=== PATIENT | female | born 1985 | race Caucasian/White ===

== ENCOUNTER 2019-10-20 04:37 | Inpatient (IN) | payer OTHER ==
[2019-10-20 05:05] VITALS: BMI 30.7
[2019-10-20 05:55] LABS: BASO % 0.4 % (0-2.0); EOS % 0.8 % (0-4.5); HEMATOCRIT 39.7 % (32.4-45.2); HEMOGLOBIN 13.2 GM/dL (10.7-15.3); LYMPH % 18.7 % (8-40); MCH 27.9 pg (25.7-33.7); MCHC 33.3 g/dl (32.0-36.0); MEAN CELL VOLUME 83.8 fl (80-96); MEAN PLT VOLUME 7.9 fl (7.5-11.1); MONO % 8.7 % (3.8-10.2); NEUT % 71.4 % (42.8-82.8); PLATELET COUNT 262 K/MM3 (134-434); RBC 4.73 M/mm3 (3.60-5.2); RDW 15.6 % (11.6-15.6); WHITE BLOOD COUNT 11.1 K/mm3 (4.0-10.0)
--- NOTE | 2019-10-20 05:58 | PDOC ---
History of Present Illness - General Chief Complaint: Pain, Acute Stated Complaint: RIGHT SIDE PAIN Time Seen by Provider: 10/20/19 04:55 - History of Present Illness Initial Comments: Ms. Collins is a 34 y/o female with no significant PMH presenting today with right sided flank and back pain that started earlier this afternoon around 4pm. Reports that the pain started suddenly. Describes the pain in the right flank area and radiating to the right posterior shoulder. Describes the pain as sharp and stabbing in nature. Reports that the pain has been worsening. Reports that she tried motrin but did not improve the pain. Denies fever/chills. Denies dysuria. Denies abdominal pain. Denies chest pain/ shortness of breath. Reports that she had a kidney infection back in high school. Reports that she recently gave 2 months ago, unsure if she has hematuria. SurgHx: none, gallbladder still intact Past History - Past Medical History Allergies/Adverse Reactions: Allergies Allergy/AdvReac Type Severity Reaction Status Date / Time No Known Allergies Allergy Verified 10/20/19 06:32 COPD: No - Immunization History Immunization Up to Date: Yes - Psycho Social/Smoking Cessation Hx Smoking History: Never smoked Information on smoking cessation initiated: No Hx Alcohol Use: Yes (social) Review of Systems - Review of Systems Comments:: GENERAL/CONSTITUTIONAL: No fever or chills. No weakness._ HEAD, EYES, EARS, NOSE AND THROAT: No change in vision. No change in hearing. No sore throat._ CARDIOVASCULAR: No chest pain or shortness of breath_ RESPIRATORY: Denies cough, hemoptysis_ GASTROINTESTINAL: No nausea, vomiting, diarrhea or constipation._ GENITOURINARY: No dysuria, frequency, or change in urination._ MUSCULOSKELETAL: Reports right sided flank pain and right posterior shoulder pain. SKIN: No rash_ NEUROLOGIC: No headache, vertigo, loss of consciousness, or change in strength/ sensation._ ENDOCRINE: No increased thirst. No abnormal weight change_ HEMATOLOGIC/LYMPHATIC: No anemia, easy bleeding. ALLERGIC/IMMUNOLOGIC: No hives or skin allergy._ *Physical Exam - Vital Signs Last Vital Signs Temp Pulse Resp BP Pulse Ox 98.8 F 64 20 144/74 99 10/20/19 04:44 10/20/19 04:44 10/20/19 04:44 10/20/19 04:44 10/20/19 04:44 - Physical Exam GENERAL: Awake, alert, and oriented to person/place/time, in no acute distress_ HEAD: No signs of trauma, normocephalic, atraumatic _ EYES: PERRLA, EOMI, sclera anicteric, conjunctiva clear_ ENT: Hearing grossly normal, nares patent, oropharynx clear without exudates. No uvular deviation. Moist mucosa_ NECK: Normal ROM, supple, no lymphadenopathy, JVD, or masses_ LUNGS: No distress, speaks in full sentences, clear to auscultation bilaterally _ HEART: Regular rate and rhythm, normal S1 and S2, no murmurs appreciated, peripheral pulses normal and equal bilaterally._ ABDOMEN: Soft, nontender, normoactive bowel sounds. No guarding, no rebound. No masses_ MSK: No tenderness to palpation over right flank or right posterior shoulder. BACK: No CVA tenderness bilaterally. EXTREMITIES: Normal inspection, Normal range of motion, no edema. No clubbing or cyanosis_ NEUROLOGICAL: Cranial nerves II through XII grossly intact. Normal speech, normal gait, no focal sensorimotor deficits _ SKIN: Warm, Dry, normal turgor, no rashes or lesions noted_ ED Treatment Course - LABORATORY CBC & Chemistry Diagram: 10/20/19 05:30 10/20/19 05:30 - RADIOLOGY Radiology Studies Ordered: Category Date Time Status SPIRAL- RENAL-STONE CT [CT] Stat CT Scan 10/20/19 05:12 Ordered Medical Decision Making - Medical Decision Making 34F with past hx of kidney infection presenting with right sided flank pain radiating to the right posterior shoulder. -cbc, cmp -ua, ucx, upreg -ct spiral -toradol, IV fluids 10/20/19 05:45 Labs reviewed. Laboratory Tests 10/20/19 10/20/19 10/20/19 05:30 05:30 05:30 WBC 11.1 H RBC 4.73 Hgb 13.2 Hct 39.7 MCV 83.8 MCH 27.9 MCHC 33.3 RDW 15.6 Plt Count 262 MPV 7.9 Absolute Neuts (auto) 7.9 Neutrophils % 71.4 Lymphocytes % 18.7 Monocytes % 8.7 Eosinophils % 0.8 Basophils % 0.4 Nucleated RBC % 0 D-Dimer Sodium 142 Potassium 3.8 Chloride 108 H Carbon Dioxide 25 Anion Gap 9 BUN 17.2 Creatinine 1.0 Est GFR (CKD-EPI)AfAm 85.72 Est GFR (CKD-EPI)NonAf 73.96 Random Glucose 79 Calcium 8.6 Total Bilirubin 0.4 AST 14 L ALT 24 Alkaline Phosphatase 122 H Total Protein 6.6 Albumin 3.3 L Urine Color Urine Appearance Urine pH Ur Specific [place] Urine Protein Urine Glucose (UA) Urine Ketones Urine Blood Urine Nitrite Urine Bilirubin Urine Urobilinogen Ur Leukocyte Esterase Urine WBC (Auto) Urine RBC (Auto) Urine Casts (Auto) U Epithel Cells (Auto) Urine Bacteria (Auto) Urine HCG, Qual Negative Urine Test Results Urine Color Yellow 10/20/19 05:50 Urine Appearance Clear 10/20/19 05:50 Urine pH 6.0 (5.0-8.0) 10/20/19 05:50 Ur Specific [place] 1.025 (1.010-1.035) 10/20/19 05:50 Urine Protein Negative (NEGATIVE) 10/20/19 05:50 Urine Glucose (UA) Negative (NEGATIVE) 10/20/19 05:50 Urine Ketones Negative (NEGATIVE) 10/20/19 05:50 Urine Blood 2+ (NEGATIVE) H 10/20/19 05:50 Urine Nitrite Negative (NEGATIVE) 10/20/19 05:50 Urine Bilirubin Negative (NEGATIVE) 10/20/19 05:50 Ur Leukocyte Esterase Negative (NEGATIVE) 10/20/19 05:50 10/20/19 07:09 Pt signed out to Dr. Kolb pending CT spiral. Discharge - Discharge Information Problems reviewed: Yes Clinical Impression/Diagnosis: Pulmonary embolus Condition: Guarded - Admission Yes - Follow up/Referral - Patient Discharge Instructions - Post Discharge Activity
[2019-10-20] MEDS ORDERED: KETOROLAC TROMETHAMINE 30 MG/1 ML VIAL IVPUSH ONE ×2 (06:23→13:56)
[2019-10-20] MEDS ORDERED: SODIUM CHLORIDE 1,000 ML IV STA (06:23)
--- NOTE | 2019-10-20 06:23 | PDOC ---
Attending Attestation - Resident Resident Name: Jef Reyna - ED Attending Attestation I have performed the following: I have examined & evaluated the patient, The case was reviewed & discussed with the resident, I agree w/resident's findings & plan, Exceptions are as noted - HPI HPI: 10/20/19 06:19 Ms. Collins is a 34 y/o female with no significant PMH presenting today with right sided flank and back pain that started earlier this afternoon around 4pm. Pain began suddenly, pain is described as sharp/stabbing. Pain is rated 8/10. Patient attempted to go to sleep, but pain has been worsening. She tried taking Motrin with no relief. No fevers or chills Denies fever/chills. No dysuria, patient is currently on her first. Status post delivery so cannot inform us about hematuria Denies chest pain/shortness of breath. Reports that she had a kidney infection back in high school SurgHx: none, gallbladder still intact - Physicial Exam PE: 10/20/19 06:21 GENERAL: The patient is in no acute distress, patient appears uncomfortable. ENT: Ears normal, nares patent, oropharynx clear without exudates. Moist mucous membranes. NECK: Normal range of motion, supple LUNGS: Breath sounds equal, clear to auscultation bilaterally. No wheezes, and no crackles. HEART:Regular rate and rhythm, normal S1 and S2 without murmur, rub or gallop. ABDOMEN: Soft, nontender, normoactive bowel sounds. No actual CVA tenderness EXTREMITIES: Normal range of motion, no edema. NEUROLOGICAL: Cranial nerves II through XII grossly intact. Normal speech. No focal neurological deficits. SKIN: Warm, Dry, normal turgor, no rashes or lesions noted. - Medical Decision Making 10/20/19 06:22 34-year-old female, 2 months presenting to the emergency department with sudden onset of right flank pain which is been present since 4 PM. Pain is been worsening which prompted her visit to the ER. No associated fevers or chills. No dysuria. Differential diagnosis in this patient includes and is not limited to: Renal colic, pyelonephritis, biliary colic, musculoskeletal pain, Will do: Lab UA/urine culture Spiral CT IV hydration Analgesia Reassess Signed out to AM team
[2019-10-20 06:25] LABS: ALBUMIN 3.3 g/dl (3.4-5.0); ALK PHOS 122 U/L (45-117); ANION GAP 9 MMOL/L (8-16); BILIRUBIN,TOTAL 0.4 mg/dL (0.2-1); BLOOD UREA NITROGEN 17.2 mg/dL (7-18); CALCIUM 8.6 mg/dL (8.5-10.1); CHLORIDE 108 mmol/L (98-107); CO2 25 mmol/L (21-32); GLUCOSE,RANDOM 79 mg/dL (74-106); POTASSIUM 3.8 mmol/L (3.5-5.1); SGOT/AST 14 U/L (15-37); SGPT/ALT 24 U/L (13-61); SODIUM 142 mmol/L (136-145); TOT PROT 6.6 g/dl (6.4-8.2)
[2019-10-20 07:00] LABS: EPI CELLS 0.7 /HPF (0-5/HPF); HYALINE CASTS 0 /lpf (0-8); URINE APPEARANCE CLEAR; URINE BACTERIA 9.1 /hpf (NEGATIVE); URINE BILIRUBIN NEGATIVE (NEGATIVE); URINE COLOR YELLOW; URINE GLUCOSE (UA) NEGATIVE (NEGATIVE); URINE KETONE NEGATIVE (NEGATIVE); URINE LEUK ESTERASE NEGATIVE (NEGATIVE); URINE NITRITE NEGATIVE (NEGATIVE); URINE PROTEIN NEGATIVE (NEGATIVE); URINE RBC 21 /hpf (0-4); URINE UROBILINOGEN 0.2 mg/dL (0.2-1.0); URINE WBC 1 /hpf (0-5)
--- NOTE | 2019-10-20 07:23 | PDOC ---
*Physical Exam - Vital Signs Last Vital Signs Temp Pulse Resp BP Pulse Ox 98.8 F 64 20 144/74 99 10/20/19 04:44 10/20/19 04:44 10/20/19 04:44 10/20/19 04:44 10/20/19 04:44 ED Treatment Course - LABORATORY CBC & Chemistry Diagram: 10/20/19 05:30 10/20/19 05:30 - ADDITIONAL ORDERS Additional order review: Laboratory Results 10/20/19 10/20/19 10/20/19 05:50 05:30 05:30 Sodium 142 Potassium 3.8 Chloride 108 H Carbon Dioxide 25 Anion Gap 9 BUN 17.2 Creatinine 1.0 Est GFR (CKD-EPI)AfAm 85.72 Est GFR (CKD-EPI)NonAf 73.96 Random Glucose 79 Calcium 8.6 Total Bilirubin 0.4 AST 14 L ALT 24 Alkaline Phosphatase 122 H Total Protein 6.6 Albumin 3.3 L Urine Color Yellow Urine Appearance Clear Urine pH 6.0 Ur Specific [place] 1.025 Urine Protein Negative Urine Glucose (UA) Negative Urine Ketones Negative Urine Blood 2+ H Urine Nitrite Negative Urine Bilirubin Negative Urine Urobilinogen 0.2 Ur Leukocyte Esterase Negative Urine WBC (Auto) 1 Urine RBC (Auto) 21 Urine Casts (Auto) 0 U Epithel Cells (Auto) 0.7 Urine Bacteria (Auto) 9.1 Urine HCG, Qual Negative 10/20/19 05:30 RBC 4.73 MCV 83.8 MCHC 33.3 RDW 15.6 MPV 7.9 Neutrophils % 71.4 Lymphocytes % 18.7 Monocytes % 8.7 Eosinophils % 0.8 Basophils % 0.4 - Medications Given in the ED: ED Medications Discontinued Medications Generic Name Dose Route Start Last Admin Trade Name Freq PRN Reason Stop Dose Admin Sodium Chloride 1,000 mls @ 1,000 mls/hr 10/20/19 06:23 10/20/19 06:38 Normal Saline - IV 10/20/19 07:22 1,000 mls/hr ASDIR STA Administration Ketorolac Tromethamine 30 mg 10/20/19 06:23 10/20/19 06:38 Toradol Injection - IVPUSH 10/20/19 06:24 30 mg ONCE ONE Administration Medical Decision Making - Medical Decision Making 10/20/19 07:[address] Reyna. Concern for possible kidney stone, will f/u spiral CT. 10/20/19 09:46 CT scan without kidney stones, however, cannot rule out possible infiltrate at the R lung base. Reassessed the patient, states that she has shortness of breath and pain with deep breaths, particularly on the R side. Will get chest PA + L. 10/20/19 11:30 CXR without acute pathology. Dimer over 7000. Will get CTA. 10/20/19 13:30 CTA with R lower lobe posterior emboli. Will give Lovenox, admit. 10/20/19 13:51 Patient admitted, will put in pulmonology consult. Discharge - Discharge Information Problems reviewed: Yes Clinical Impression/Diagnosis: Pulmonary embolus - Admission Yes - Follow up/Referral - Patient Discharge Instructions - Post Discharge Activity
[2019-10-20] MEDS ORDERED: ACETAMINOPHEN 1000 MG/100 ML VIAL (NON FORMULARY) IVPB ONE (11:09)
[2019-10-20] MEDS ORDERED: ACETAMINOPHEN INJECTION 100 ML IVPB ONE (11:21)
[2019-10-20] MEDS ORDERED: ENOXAPARIN NA (PORCINE) 80 MG/0.8 ML DISP.SYRIN SQ ONE (13:31)
[2019-10-20] MEDS ORDERED: ENOXAPARIN NA (PORCINE) 100 MG/1 ML DISP.SYRIN SQ ONE (14:12)
[2019-10-20] MEDS ORDERED: KETOROLAC TROMETHAMINE 15 MG/ML VIAL ONE (14:12)
--- NOTE | 2019-10-20 14:48 | PN ---
Teaching Attending Note Name of Resident: Darrion Santo ATTENDING PHYSICIAN STATEMENT I saw and evaluated the patient. I reviewed the resident's note and discussed the case with the resident. I agree with the resident's findings and plan as documented. SUBJECTIVE: Ongoing R back/side/R anterior chest pain, worse on inspiration. No sputum/hemoptysis. No fever/chills. OBJECTIVE: Afebrile, Hemodynamically Stable. Last Vital Signs Temp Pulse Resp BP Pulse Ox 98.8 F 64 20 144/74 99 10/20/19 04:44 10/20/19 04:44 10/20/19 04:44 10/20/19 04:44 10/20/19 04:44 HEENT - Atramatic, Normocephalic. Heart - S1, S2, RRR Lungs -Clear to auscultation Abdomen - Soft, non-tender. Bowel Sounds normal. Extremities - No edema, no calf tenderness. Neuro - AAO x 3. Tone/Power normal all extremities. Laboratory Results - last 24 hr 10/20/19 10/20/19 10/20/19 05:30 05:30 05:30 WBC 11.1 H RBC 4.73 Hgb 13.2 Hct 39.7 MCV 83.8 MCH 27.9 MCHC 33.3 RDW 15.6 Plt Count 262 MPV 7.9 Absolute Neuts (auto) 7.9 Neutrophils % 71.4 Lymphocytes % 18.7 Monocytes % 8.7 Eosinophils % 0.8 Basophils % 0.4 Nucleated RBC % 0 D-Dimer Sodium 142 Potassium 3.8 Chloride 108 H Carbon Dioxide 25 Anion Gap 9 BUN 17.2 Creatinine 1.0 Est GFR (CKD-EPI)AfAm 85.72 Est GFR (CKD-EPI)NonAf 73.96 Random Glucose 79 Calcium 8.6 Total Bilirubin 0.4 AST 14 L ALT 24 Alkaline Phosphatase 122 H Total Protein 6.6 Albumin 3.3 L Urine Color Urine Appearance Urine pH Ur Specific [place] Urine Protein Urine Glucose (UA) Urine Ketones Urine Blood Urine Nitrite Urine Bilirubin Urine Urobilinogen Ur Leukocyte Esterase Urine WBC (Auto) Urine RBC (Auto) Urine Casts (Auto) U Epithel Cells (Auto) Urine Bacteria (Auto) Urine HCG, Qual Negative 10/20/19 10/20/19 05:50 11:11 WBC RBC Hgb Hct MCV MCH MCHC RDW Plt Count MPV Absolute Neuts (auto) Neutrophils % Lymphocytes % Monocytes % Eosinophils % Basophils % Nucleated RBC % D-Dimer 7264 H Sodium Potassium Chloride Carbon Dioxide Anion Gap BUN Creatinine Est GFR (CKD-EPI)AfAm Est GFR (CKD-EPI)NonAf Random Glucose Calcium Total Bilirubin AST ALT Alkaline Phosphatase Total Protein Albumin Urine Color Yellow Urine Appearance Clear Urine pH 6.0 Ur Specific [place] 1.025 Urine Protein Negative Urine Glucose (UA) Negative Urine Ketones Negative Urine Blood 2+ H Urine Nitrite Negative Urine Bilirubin Negative Urine Urobilinogen 0.2 Ur Leukocyte Esterase Negative Urine WBC (Auto) 1 Urine RBC (Auto) 21 Urine Casts (Auto) 0 U Epithel Cells (Auto) 0.7 Urine Bacteria (Auto) 9.1 Urine HCG, Qual ASSESSMENT AND PLAN: 34 year old female with no significant PMH except for normal vaginal delivery 2 months ago, presents with R posterior chest pain, radiating around lateral chest to R anterior chest, sharp, worse on inspiration, with associated SOB and Cough. No sputum/hemoptysis. No lightheadedness/dizziness/LOC. Acute RLL PE CTA Chest - Pulmonary Embolii involving RLL pulmonary arteries, posterior segment. ECG - NSR, no acute changes. Recent hospitalization for child 2 months ago Non-smoker, no recent travel, but on OCP and has family history of thrombosis in her mother, reason unknown. Given 1 dose Lovenox by ED. Will initiate on eliquis. Hematology eval for Thrombophilia work-up and follow up. Cardiopulmonary status stable, Hemodynamically Stable. Some atelectasis noted on CT R lung base - SpO2 99% on RA - Incentive Spirometry encouraged to maintain aeration R base. BNP, troponin requested. Echo ordered.
--- NOTE | 2019-10-20 14:53 | HP ---
CHIEF COMPLAINT: back pain, chest pain, shortness of breath HISTORY OF PRESENT ILLNESS: Alondra Collins is a 34 year old female with a past medical history of pyelonephritis. Patient recently had a delivery of her 4th child 2 months prior. Pharmacy was called and patient was noted to start Junel 11/25 ( estrogen containing oral contraceptive) dispensed on Sep 25. Patient stated that yesterday she began to feel pain on the right side of her back that increased in severity over the next day that radiated to her chest associated with pleuritic pain on inhalation, mild shortness of breath, headache. She denies any recent travel, extended periods of sitting, smoking history. Patient denied any recent sick contacts. Denied hemoptysis, dizziness, lightheadedness, abdominal pain, nausea, vomiting, diarrhea, constipation, dysuria, hematuria, numbness, tingling. She endorsed that her mother had clots in the past but uncertain of the provoking factors. She noted that she is currently on her menstrual period. ER course was notable for: (1) WBC 11.1, elevated D-dimer (2) CTA with evidence of pulmonary emboli in the R lower lobe pulmonary arteries , posterior segment. Mild atelectatic changes in the RLL. 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 Allergies No Known Allergies Allergy (Verified 10/20/19 06:32) HOME MEDICATIONS: REVIEW OF SYSTEMS CONSTITUTIONAL: Absent: fever, chills, diaphoresis, generalized weakness, malaise, loss of appetite, HEENT: Absent: rhinorrhea, nasal congestion, throat pain, throat swelling, visual changes CARDIOVASCULAR: chest pain Absent: syncope, palpitations, irregular heart rate, lightheadedness, peripheral edema RESPIRATORY: cough, shortness of breath, pleuritic chest pain Absent: dyspnea with exertion, orthopnea, wheezing, stridor, hemoptysis GASTROINTESTINAL: Absent: abdominal pain, abdominal distension, nausea, vomiting, diarrhea, constipation, melena, hematochezia GENITOURINARY: Absent: dysuria, frequency, urgency, hesitancy, hematuria, flank pain, MUSCULOSKELETAL: back pain Absent: myalgia, arthralgia, joint swelling, neck pain SKIN: Absent: rash, itching, pallor HEMATOLOGIC/IMMUNOLOGIC: Absent: easy bleeding, easy bruising, lymphadenopathy, frequent infections ENDOCRINE: Absent: unexplained weight gain, unexplained weight loss, heat intolerance, cold intolerance NEUROLOGIC: headache Absent: focal weakness or paresthesias, dizziness, unsteady gait, seizure, mental status changes, bladder or bowel incontinence PSYCHIATRIC: Absent: anxiety, depression, suicidal or homicidal ideation, hallucinations PHYSICAL EXAMINATION Vital Signs - 24 hr 10/20/19 04:44 Temperature 98.8 F Pulse Rate 64 Respiratory 20 Rate Blood Pressure 144/74 O2 Sat by Pulse 99 Oximetry (%) GENERAL: Awake, alert, and fully oriented, in mild acute distress. HEAD: Normal with no signs of trauma. EYES: Pupils equal, round and reactive to light, extraocular movements intact, sclera anicteric, conjunctiva clear. EARS, NOSE, THROAT: Oropharynx clear without exudates. Moist mucous membranes. NECK: Normal range of motion, supple without lymphadenopathy, JVD. LUNGS: Breath sounds equal, clear to auscultation bilaterally. No wheezes, and no crackles. No accessory muscle use. Noted pain on inspiration HEART: Regular rate and rhythm, normal S1 and S2 without murmur, rub. ABDOMEN: Soft, mildly tender on RUQ, not distended, normoactive bowel sounds, no guarding, no rebound, no masses. MUSCULOSKELETAL: Normal range of motion at all joints. No bony deformities or tenderness. Noted CVA tenderness. UPPER EXTREMITIES: 2+ pulses, warm, well-perfused. No cyanosis. No clubbing. No peripheral edema. LOWER EXTREMITIES: 2+ pulses, warm, well-perfused. No calf tenderness. No peripheral edema. NEUROLOGICAL: Cranial nerves II-XII intact. 5/5 muscle strenth upper and lower extremities bilaterally. PSYCHIATRIC: Cooperative. Good eye contact. Appropriate mood and affect. SKIN: Warm, dry, normal turgor, no rashes or lesions noted, normal capillary refill. Laboratory Results - last 24 hr 10/20/19 10/20/19 10/20/19 05:30 05:30 05:30 WBC 11.1 H RBC 4.73 Hgb 13.2 Hct 39.7 MCV 83.8 MCH 27.9 MCHC 33.3 RDW 15.6 Plt Count 262 MPV 7.9 Absolute Neuts (auto) 7.9 Neutrophils % 71.4 Lymphocytes % 18.7 Monocytes % 8.7 Eosinophils % 0.8 Basophils % 0.4 Nucleated RBC % 0 D-Dimer Sodium 142 Potassium 3.8 Chloride 108 H Carbon Dioxide 25 Anion Gap 9 BUN 17.2 Creatinine 1.0 Est GFR (CKD-EPI)AfAm 85.72 Est GFR (CKD-EPI)NonAf 73.96 Random Glucose 79 Calcium 8.6 Total Bilirubin 0.4 AST 14 L ALT 24 Alkaline Phosphatase 122 H Total Protein 6.6 Albumin 3.3 L Urine Color Urine Appearance Urine pH Ur Specific [place] Urine Protein Urine Glucose (UA) Urine Ketones Urine Blood Urine Nitrite Urine Bilirubin Urine Urobilinogen Ur Leukocyte Esterase Urine WBC (Auto) Urine RBC (Auto) Urine Casts (Auto) U Epithel Cells (Auto) Urine Bacteria (Auto) Urine HCG, Qual Negative 10/20/19 10/20/19 05:50 11:11 WBC RBC Hgb Hct MCV MCH MCHC RDW Plt Count MPV Absolute Neuts (auto) Neutrophils % Lymphocytes % Monocytes % Eosinophils % Basophils % Nucleated RBC % D-Dimer 7264 H Sodium Potassium Chloride Carbon Dioxide Anion Gap BUN Creatinine Est GFR (CKD-EPI)AfAm Est GFR (CKD-EPI)NonAf Random Glucose Calcium Total Bilirubin AST ALT Alkaline Phosphatase Total Protein Albumin Urine Color Yellow Urine Appearance Clear Urine pH 6.0 Ur Specific [place] 1.025 Urine Protein Negative Urine Glucose (UA) Negative Urine Ketones Negative Urine Blood 2+ H Urine Nitrite Negative Urine Bilirubin Negative Urine Urobilinogen 0.2 Ur Leukocyte Esterase Negative Urine WBC (Auto) 1 Urine RBC (Auto) 21 Urine Casts (Auto) 0 U Epithel Cells (Auto) 0.7 Urine Bacteria (Auto) 9.1 Urine HCG, Qual EKG--> Sinus rhythm with arrhythmia, no ST segment changes. Noted T wave inversion in III. QTc 405 ASSESSMENT/PLAN: Alondra Collins is a 34 year old female with a past medical history of pyelonephritis admitted for pulmonary embolus. Pulmonary Embolus - CTA results as above - currently hemodynamically stable - PESI score 33, noting very low risk (0.8%) of 30 day mortality - risk factors include obesity, estrogen containing OCP, recent delivery, family history, sedentary job - given Lovenox in ED - Start Eliquis 10mg bid for 7 days then Eliquis 5mg bid - incentive spirometery - pulmonary consulted - hemo/onc consulted - will need pulmonary and heme-onc f/u - advised will need alternative control method and advised not to smoke - follow troponins - echo ordered Blood on UA - currently on menstrual period - can follow up with PCP for UA to rule out alternative pathology Leukocytosis - likely reactive in setting of PE - no signs of infection, afebrile - monitor off abx Prophylaxis - on Lovenox/Eliquis FEN - no standing fluids, encourage oral hydration - continue to monitor electrolytes and replete as necessary - Regular diet Dispo - admit to Med-surg Family Medical History Family Hx Cardiac Disorders: Mother (GA,HTN) Other Family History: Mother with hx of clot Visit type - Emergency Visit Emergency Visit: Yes ED Registration Date: 10/20/19 Care time: The patient presented to the Emergency Department on the above date and was hospitalized for further evaluation of their emergent condition. - New Patient This patient is new to me today: Yes Date on this admission: 10/20/19 - Critical Care Critical Care patient: No
[2019-10-20 17:38] LABS: N-TERMINAL BNP 38.6 pg/ml (5-125)
--- NOTE | 2019-10-20 17:38 | CONSULT ---
Consult Consult Specialty:: Hematology Reason for Consultation:: Pulmonary Embolism - History of Present Illness Chief Complaint: Back and Chest Pain History of Present Illness: 34 y/o lady with a past medical history of pyelonephritis. Patient recently had a delivery of her 4th child 2 months prior. She recently started to take an estrogen containing contraceptive. Mentioned felt intense pain in her back and radiated to the chest, some SOB. Mother with a clot in her chest but could not remember details and it appears to be unprovoked - History Source History Provided By: Patient Limitations to Obtaining History: No Limitations - Past Medical History ...LMP: 10/17/19 ...: No - Alcohol/Substance Use Hx Alcohol Use: Yes (social) - Smoking History Smoking history: Never smoked Home Medications - Allergies Allergies/Adverse Reactions: Allergies Allergy/AdvReac Type Severity Reaction Status Date / Time No Known Allergies Allergy Verified 10/20/19 06:32 Family Medical History Other Family History: Mother had a "clot in her chest" Review of Systems - Review of Systems Constitutional: reports: No Symptoms Eyes: reports: No Symptoms HENT: reports: No Symptoms Neck: reports: No Symptoms Cardiovascular: reports: Chest Pain Respiratory: reports: SOB Gastrointestinal: reports: No Symptoms Genitourinary: reports: No Symptoms Breasts: reports: No Symptoms Reported Musculoskeletal: reports: No Symptoms Integumentary: reports: No Symptoms Neurological: reports: No Symptoms Endocrine: reports: No Symptoms Hematology/Lymphatic: reports: No Symptoms Psychiatric: reports: No Symptoms Physical Exam Vital Signs: Vital Signs Temperature 97.7 F 10/20/19 15:51 Pulse Rate 60 10/20/19 15:51 Respiratory Rate 18 10/20/19 15:51 Blood Pressure 112/76 10/20/19 15:51 O2 Sat by Pulse Oximetry (%) 98 10/20/19 15:20 Constitutional: Yes: Well Nourished, No Distress, Calm Eyes: Yes: WNL, Conjunctiva Clear, EOM Intact HENT: Yes: WNL, Atraumatic, Normocephalic Neck: Yes: WNL, Supple, Trachea Midline Cardiovascular: Yes: WNL, Regular Rate and Rhythm Respiratory: Yes: WNL, Regular, CTA Bilaterally Gastrointestinal: Yes: WNL, Normal Bowel Sounds, Soft ...Rectal Exam: Yes: WNL, Deferred Renal/: Yes: WNL Breast(s): Yes: WNL Musculoskeletal: Yes: WNL Extremities: Yes: WNL Integumentary: Yes: WNL Wound/Incision: Yes: Clean/Dry, Well Approximated Neurological: Yes: WNL, Alert, Oriented ...Motor Strength: WNL Psychiatric: Yes: WNL, Alert, Oriented Labs: CBC, BMP 10/20/19 05:30 10/20/19 05:30 Imaging - Results Cat Scan: Report Reviewed Problem List - Problems (1) Pulmonary embolus Code(s): I26.99 - OTHER PULMONARY EMBOLISM WITHOUT ACUTE COR PULMONALE Assessment/Plan 34 y/o lady ~ 8 prior weeks, who recently started estrogen containing oral contraceptive presenting wit cest pain and found to have a RLL pulmonary embolus. Recommend: 1) RLL PE. Multiple risk factors including obesity, estrogen containing OC, post - state. Hemodynamically stable. Recommend Lovenox for 3-4 days before starting Apixaban 10 mg BID x 7 days and then 5 mg BID. Will consider 6 months in her case and re-evaluate 2) Inherited hypercoagulable syndrome evaluation. She has multiple provoking ( reversible) risk factors which can explain this presentation. However, a superimposed hypercoagulable syndrome cannot be ruled out (unclear circumstances of her mother PE). Given acute thrombosis and anticoagulant therapy she can only be evaluated for Prothrombin gene mutation and Factor V Leyden mutations. After completing anticoagulation (at least 2 weeks off therapy ) she can be tested for Antithrombin, Protein C and Protein S deficiencies and also antiphospholipid syndrome. 3) Follow up with hematology outpatient upon discharge 4) Thank you for this consultation
[2019-10-20] MEDS ORDERED: ACETAMINOPHEN 325 MG TABLET (FP) PO PRN (19:13)
[2019-10-20] MEDS: oxyCODONE HCL 5 MG TABLET PO PRN (22:02)
[2019-10-20] MEDS: APIXABAN 5 MG TABLET PO SCH (22:02)
[2019-10-21 08:53] LABS: HEMATOCRIT 40.3 % (32.4-45.2); HEMOGLOBIN 13.6 GM/dL (10.7-15.3); MCH 28.4 pg (25.7-33.7); MCHC 33.8 g/dl (32.0-36.0); MEAN CELL VOLUME 84.1 fl (80-96); MEAN PLT VOLUME 8.4 fl (7.5-11.1); PLATELET COUNT 256 K/MM3 (134-434); RDW 15.1 % (11.6-15.6); WHITE BLOOD COUNT 6.2 K/mm3 (4.0-10.0)
[2019-10-21 09:07] LABS: INR 1.1 (0.83-1.09)
[2019-10-21 09:10] LABS: ACTIVATED PTT 34.2 SECONDS (25.2-36.5)
[2019-10-21 09:22] LABS: BLOOD UREA NITROGEN 11.2 mg/dL (7-18); CALCIUM 8.3 mg/dL (8.5-10.1); CREATININE 0.8 mg/dL (0.55-1.3); MAGNESIUM 2.2 mg/dL (1.8-2.4); POTASSIUM 4.1 mmol/L (3.5-5.1)
[2019-10-21] MEDS: APIXABAN 5 MG TABLET PO SCH (09:24)
[2019-10-21] MEDS: oxyCODONE HCL 5 MG TABLET PO PRN (10:22)
--- NOTE | 2019-10-21 10:25 | CON.PULM ---
Consult Consult Specialty:: PULMONARY Referred by:: Dr Easton Reason for Consultation:: PE - History of Present Illness Chief Complaint: back pain History of Present Illness: 34yo female without significant past medical history who was admitted with sudden onset of right back pain. Did report some mild shortness of breath. No cough or wheezing. Found to have subsegmental right sided PE. No personal history of clots but reports that her mother did have clots. She is a nonsmoker , reports having an active lifestyle. No recent prolonged immobilizations. No recent leg trauma or swelling. Recently started an OCP. - History Source History Provided By: Patient, Medical Record Limitations to Obtaining History: No Limitations - Past Medical History ...LMP: 10/17/19 ...: No - Alcohol/Substance Use Hx Alcohol Use: Yes (social) - Smoking History Smoking history: Never smoked Home Medications - Allergies Allergies/Adverse Reactions: Allergies Allergy/AdvReac Type Severity Reaction Status Date / Time No Known Allergies Allergy Verified 10/20/19 06:32 Review of Systems - Review of Systems Constitutional: denies: Chills, Fever, Weakness Eyes: denies: Recent Change in Vision HENT: denies: Nasal Congestion, Throat Pain Neck: denies: Stiffness, Tenderness Cardiovascular: reports: Shortness of Breath. denies: Chest Pain Respiratory: denies: Cough, Hemoptysis, Wheezing Gastrointestinal: denies: Abdominal Pain, Nausea, Vomiting Genitourinary: denies: Dysuria, Hematuria Musculoskeletal: reports: Back Pain Neurological: denies: Dizziness, Headache Endocrine: denies: Unexplained Weight Loss Physical Exam Vital Sings: Vital Signs Temperature 98.1 F 10/21/19 10:00 Pulse Rate 76 10/21/19 10:00 Respiratory Rate 20 10/21/19 10:00 Blood Pressure 116/60 10/21/19 10:00 O2 Sat by Pulse Oximetry (%) 98 10/21/19 09:00 Constitutional: Yes: Calm Eyes: Yes: Conjunctiva Clear, EOM Intact HENT: Yes: Atraumatic, Normocephalic Neck: Yes: Supple, Trachea Midline Cardiovascular: Yes: Regular Rate and Rhythm Respiratory: Yes: Regular, CTA Bilaterally Gastrointestinal: Yes: Normal Bowel Sounds, Soft. No: Tenderness Edema: No Labs: CBC, BMP 10/21/19 07:58 12/16/19 07:58 Imaging - Results Cat Scan: Report Reviewed, Image Reviewed (RLL PE) Problem List - Problems (1) Pulmonary embolus Code(s): I26.99 - OTHER PULMONARY EMBOLISM WITHOUT ACUTE COR PULMONALE Assessment/Plan Acute Pulmonary Emboli - continue anticoagulation - will need at least 6 months of anticoagulation - echocardiogram - LE dopplers - heme work up as outpt Thank you for this consult To Mora MD
[2019-10-21] MEDS ORDERED: traMADol HCL 50 MG TABLET PO PRN (11:53)
--- NOTE | 2019-10-21 13:59 | PN ---
Teaching Attending Note Name of Resident: Darrion Santo ATTENDING PHYSICIAN STATEMENT I saw and evaluated the patient. I reviewed the resident's note and discussed the case with the resident. I agree with the resident's findings and plan as documented. SUBJECTIVE: R back/side/R anterior chest pain improving, worse on inspiration. No sputum/hemoptysis. No fever/chills. OBJECTIVE: Afebrile, Hemodynamically Stable. Last Vital Signs Temp Pulse Resp BP Pulse Ox 98.1 F 76 20 116/60 98 10/21/19 10:00 10/21/19 10:00 10/21/19 10:00 10/21/19 10:00 10/21/19 09:00 Heart - S1, S2, RRR Lungs -Clear to auscultation Abdomen - Soft, non-tender. Bowel Sounds normal. Extremities - No edema, no calf tenderness. Neuro - AAO x 3. Tone/Power normal all extremities. Laboratory Results - last 24 hr 10/20/19 10/20/19 10/21/19 05:30 17:40 07:58 WBC 6.2 RBC 4.80 Hgb 13.6 Hct 40.3 MCV 84.1 MCH 28.4 MCHC 33.8 RDW 15.1 Plt Count 256 MPV 8.4 PT with INR INR PTT (Actin FS) Sodium 142 Potassium 3.8 Chloride 108 H Carbon Dioxide 25 Anion Gap 9 BUN 17.2 Creatinine 1.0 Est GFR (CKD-EPI)AfAm 85.72 Est GFR (CKD-EPI)NonAf 73.96 Random Glucose 79 Calcium 8.6 Magnesium Total Bilirubin 0.4 AST 14 L ALT 24 Alkaline Phosphatase 122 H Troponin I < 0.02 < 0.02 B-Natriuretic Peptide 38.6 Total Protein 6.6 Albumin 3.3 L 10/21/19 10/21/19 07:58 07:58 WBC RBC Hgb Hct MCV MCH MCHC RDW Plt Count MPV PT with INR 13.00 INR 1.10 H PTT (Actin FS) 34.2 Sodium 142 Potassium 4.1 Chloride 111 H Carbon Dioxide 24 Anion Gap 7 L BUN 11.2 Creatinine 0.8 Est GFR (CKD-EPI)AfAm 112.27 Est GFR (CKD-EPI)NonAf 96.87 Random Glucose 77 Calcium 8.3 L Magnesium 2.2 Total Bilirubin AST ALT Alkaline Phosphatase Troponin I B-Natriuretic Peptide Total Protein Albumin Current Medications Generic Name Dose Route Start Last Admin Trade Name Freq PRN Reason Stop Dose Admin Acetaminophen 650 mg 10/20/19 19:13 10/20/19 19:23 Tylenol - PO 650 mg Q6H PRN Administration PAIN LEVEL 1-5 Apixaban 10 mg 10/20/19 22:00 10/21/19 09:24 Eliquis - PO 10 mg BID CLIVE Administration Tramadol HCl 50 mg 10/21/19 11:53 Ultram - PO Q8H PRN PAIN LEVEL 6-10 Home Medications Medication Instructions Recorded Apixaban [Eliquis] 5 mg PO BID #66 tablet 10/21/19 Norethindrone-E.estradiol-Iron PO 10/21/19 [Junel Fe 1 mg-20 Mcg Tablet] ASSESSMENT AND PLAN: 34 year old female with no significant PMH except for normal vaginal delivery 2 months ago, presents with R posterior chest pain, radiating around lateral chest to R anterior chest, sharp, worse on inspiration, with associated SOB and Cough. No sputum/hemoptysis. No lightheadedness/dizziness/LOC. Acute RLL PE CTA Chest - Pulmonary Embolii involving RLL pulmonary arteries, posterior segment. ECG - NSR, no acute changes. Recent hospitalization for child 2 months ago Non-smoker, no recent travel, but on OCP and has family history of thrombosis in her mother, reason unknown. Given 1 dose Lovenox by ED followed by initiation on Eliquis. Hematology eval for Thrombophilia work-up and follow up as out-patient. Cardiopulmonary status stable, Hemodynamically Stable. Some atelectasis noted on CT R lung base - SpO2 99% on RA - Incentive Spirometry encouraged to maintain aeration R base. BNP, troponin negative Medically optimized for discharge on anticoagulation pending Echo result, with Hematology and Pulm out-patient follow up. Will send script for Tramadol for pain.
--- NOTE | 2019-10-21 14:49 | EKG ---
Test Reason : Blood Pressure : / mmHG Vent. Rate : 063 BPM Atrial Rate : 063 BPM P-R Int : 144 ms QRS Dur : 076 ms QT Int : 396 ms P-R-T Axes : 045 015 016 degrees QTc Int : 405 ms SINUS RHYTHM WITH MARKED SINUS ARRHYTHMIA OTHERWISE NORMAL ECG NO PREVIOUS ECGS AVAILABLE Confirmed by RODRIGO ANTHONY MD ([id number]) on 10/21/2019 2:48:59 PM Referred By: Confirmed By:RODRIGO ANTHONY MD
[2019-10-21 16:12] VITALS: TEMP 98
--- NOTE | 2019-10-21 16:23 | DS ---
Physical Exam: SUBJECTIVE: Patient seen and examined at the bedside. Stated she feels better today. Noted her pain in her back and chest is better and breathing is improved. Denies cp, sob, abd pain, n/v/c/d, cough, fever, chills, hemoptosis, leg swelling, headaches, dizziness, lightheadedness. OBJECTIVE: Vital Signs Period Temp Pulse Resp BP Sys/Patrick Pulse Ox Last 24 Hr 97.2 F-98.2 F 62-76 20-20 115-138/59-78 98-98 PHYSICAL EXAM GENERAL: Awake, alert, and fully oriented, in mild acute distress. HEAD: Normal with no signs of trauma. EYES: Pupils equal, round and reactive to light, extraocular movements intact, sclera anicteric, conjunctiva clear. EARS, NOSE, THROAT: Oropharynx clear without exudates. Moist mucous membranes. NECK: Normal range of motion, supple without lymphadenopathy, JVD. LUNGS: Breath sounds equal, clear to auscultation bilaterally. No wheezes, and no crackles. No accessory muscle use. HEART: Regular rate and rhythm, normal S1 and S2 without murmur, rub. ABDOMEN: Soft, non-tender, not distended, normoactive bowel sounds, no guarding , no rebound, no masses. MUSCULOSKELETAL: Normal range of motion at all joints. No bony deformities or tenderness. UPPER EXTREMITIES: 2+ pulses, warm, well-perfused. No cyanosis. No clubbing. No peripheral edema. LOWER EXTREMITIES: 2+ pulses, warm, well-perfused. No calf tenderness. No peripheral edema. NEUROLOGICAL: Cranial nerves II-XII intact. 5/5 muscle strenth upper and lower extremities bilaterally. PSYCHIATRIC: Cooperative. Good eye contact. Appropriate mood and affect. SKIN: Warm, dry, normal turgor, no rashes or lesions noted, normal capillary refill. LABS Laboratory Results - last 24 hr 10/20/19 10/20/19 10/21/19 05:30 17:40 07:58 WBC 6.2 RBC 4.80 Hgb 13.6 Hct 40.3 MCV 84.1 MCH 28.4 MCHC 33.8 RDW 15.1 Plt Count 256 MPV 8.4 PT with INR INR PTT (Actin FS) Sodium 142 Potassium 3.8 Chloride 108 H Carbon Dioxide 25 Anion Gap 9 BUN 17.2 Creatinine 1.0 Est GFR (CKD-EPI)AfAm 85.72 Est GFR (CKD-EPI)NonAf 73.96 Random Glucose 79 Calcium 8.6 Magnesium Total Bilirubin 0.4 AST 14 L ALT 24 Alkaline Phosphatase 122 H Troponin I < 0.02 < 0.02 B-Natriuretic Peptide 38.6 Total Protein 6.6 Albumin 3.3 L 10/21/19 10/21/19 07:58 07:58 WBC RBC Hgb Hct MCV MCH MCHC RDW Plt Count MPV PT with INR 13.00 INR 1.10 H PTT (Actin FS) 34.2 Sodium 142 Potassium 4.1 Chloride 111 H Carbon Dioxide 24 Anion Gap 7 L BUN 11.2 Creatinine 0.8 Est GFR (CKD-EPI)AfAm 112.27 Est GFR (CKD-EPI)NonAf 96.87 Random Glucose 77 Calcium 8.3 L Magnesium 2.2 Total Bilirubin AST ALT Alkaline Phosphatase Troponin I B-Natriuretic Peptide Total Protein Albumin HOSPITAL COURSE: Alondra Collins is a 34 year old female with a past medical history of pyelonephritis admitted for pulmonary embolus. CTA showed evidence of pulmonary emboli in the R lower lobe pulmonary arteries, posterior segment and mild atelectatic changes in the RLL. Patient was given Lovenox and started on Eliquis 10mg bid for 7 days and then transitioned to 5mg bid. Seen by pulmonology who continue to recommend anticoagulation and seen by hematology who recommend anticoagulation and to follow up outpatient for workup of coagulopathy due to family history. Patient was advised to cease taking estrogen containing OCPs, not to smoke, not to breastfeed or feed pumped milk to child while on Eliquis and tramadol. Patient had an echocardiogram which showed normal LV systolic functon, EF 65-70%, mild tricuspid and mitral regurg, RV systolic function low normal. Patient had LE duplex which did not show any DVTs. Patient to follow up with her PCP, hematology, and pulmonology and to be compliant with medications. Patient was advised of the plan, agreed to it, and reiterated it. Patient was discharged in stable medical condition. Date of Admission:10/20/19 Date of Discharge: 10/21/19 Minutes to complete discharge: 35 Discharge Summary Problems reviewed: Yes Reason For Visit: PULMONARY EMBOLISM Current Active Problems Pulmonary embolus (Chronic) Condition: Improved - Instructions Diet, Activity, Other Instructions: You were admitted after developing a clot in your lungs. You had a CT scan of your chest that showed that the clot was located on the right side of your lungs. You were given a blood thinner medication in order to help prevent the clot from increasing in size which you should continue to take when you leave the hospital. You had an echocardiogram (ultrasound of the heart) which showed normal function of your heart with some mild abnormalities of your valves. You can follow up with your primary care doctor for these findings. You had an ultrasound of your legs performed which did not show any clots in your legs. You were seen by the product marketing analyst (lung doctor) who recommended that you continue with the blood thinner medication and go to have the reason why you had the clot investigated by a childbirth and infant care teacher (blood doctor). You were seen by the childbirth and infant care teacher who recommended that you continue the blood thinner and see them in the office as an outpatient. MEDICATIONS STOP taking . 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 START taking Eliquis 10mg twice a day for 7 days. Your last dose of the 10mg will be on October 27. Afterwards take Eliquis 5mg twice a day and follow up with the product marketing analyst. While you are on Eliquis it is important that you do not breastfeed and do not give any milk that you may pump to your baby. Throw out any milk that you pump. START taking tramadol 30mg every 8 hours as needed for pain. While you are on tramadol it is important that you do not breastfeed and do not give any milk that you may pump to your baby. Throw out any milk that you pump. REFERRALS Please follow up with your primary care doctor within 1 week. If you do not have a primary care doctor, you may go to the resident's clinic and make an appointment. Please follow up with the product marketing analyst, Dr. Quan Paez, within 1 week. Please follow up with the childbirth and infant care teacher, Dr. Omid Bills, within 1 week. SPECIAL INSTRUCTIONS Be careful while you are on the blood thinner medication Eliquis to avoid falls , cuts, or other situations in which you may bleed excessively. If you start having blood bowel movements, excessive menstrual blood, blood in your urine, vomiting blood, or feel unwell, please call 911 or go to your nearest emergency room. While on Eliquis and tramadol, it is important that you do not breastfeed or give any milk that you pump to your baby. If you begin to experience chest pain, shortness of breath, abdominal pain, weakness, inability to move, any of the above symptoms, or any other general feelings of unwellness, please call 911 or go to your nearest emergency room. Referrals: [facility] [place] [Provider Group] - 1 Week uQan Paez MD [Staff Physician] - 1 Week Guanakito Bills MD [Staff Physician] - 1 Week Disposition: HOME - Home Medications Comprehensive Discharge Medication List: Ambulatory Orders Apixaban [Eliquis] 5 mg PO BID #66 tablet 10/21/19 Norethindrone-E.estradiol-Iron [Junel Fe 1 mg-20 Mcg Tablet] PO 10/21/19 Tramadol HCl 50 mg PO Q6H PRN #15 tablet MDD 200mg 10/21/19 Problem List - Problems (1) Pulmonary embolus Code(s): I26.99 - OTHER PULMONARY EMBOLISM WITHOUT ACUTE COR PULMONALE This patient is new to me today: No Emergency Visit: Yes ED Registration Date: 10/20/19 Care time: The patient presented to the Emergency Department on the above date and was hospitalized for further evaluation of their emergent condition. Critical Care patient: No - Discharge Referral Referred to [facility] No
--- NOTE | 2019-10-21 16:42 | ECHO ---
Name: DAMIEN JULIEN Bernardino Exam:Adult Echocardiogram Study Date: 10/21/2019 02:44 PM Age: 34 yrs MMode/2D Measurements & Calculations IVSd: 0.86 cm Ao root diam: 2.1 cm LVIDd: 4.3 cm LA dimension: 3.5 cm LVIDs: 2.7 cm LVPWd: 0.61 cm LVPWs: 1.0 cm EDV(Teich): 80.9 ml ESV(Teich): 26.8 ml LVOT diam: 1.7 cm LAV (MOD-bp): 37.0 ml Doppler Measurements & Calculations MV E max jesse: 89.3 cm/sec Ao V2 max: 138.8 cm/sec MV A max jesse: 50.3 cm/sec Ao max P.7 mmHg MV E/A: 1.8 LEI(V,D): 1.5 cm2 MV dec time: 0.21 sec LV V1 max P.6 mmHg TR max jesse: 223.2 cm/sec LV V1 max: 94.3 cm/sec TR max P.9 mmHg PA V2 max: 110.3 cm/sec Med Peak E' Jesse: 7.9 cm/sec PA max P.9 mmHg Med E/e': 11.3 Lat Peak E' Jesse: 17.8 cm/sec Lat E/e': 5.0 Procedure A complete two-dimensional transthoracic echocardiogram was performed (2D, M-mode, Doppler and color flow Doppler). Left Ventricle The left ventricle is normal in size. Left ventricular systolic function is normal. Ejection Fraction = 65- 70%. No regional wall motion abnormalities noted. Right Ventricle The right ventricle is normal size. RV systolic function appears low normal. RV systolic TDI is 12 cm /s. Atria The left atrial size is normal. Right atrial size is normal. Mitral Valve The mitral valve is normal in structure and function. There is mild mitral regurgitation. Tricuspid Valve The tricuspid valve is normal in structure and function. There is mild to moderate tricuspid regurgit ation. Pulmonary artery systolic pressure is normal with at least 23 mmHg if RA pressure is assumed 3 mmHg. Aortic Valve The aortic valve is normal in structure and function. No aortic regurgitation is present. Pulmonic Valve The pulmonic valve is not well visualized. Great Vessels The aortic root is normal size. Pericardium/Pleura There is no pericardial effusion. Interpretation Summary The left ventricle is normal in size. Left ventricular systolic function is normal. No regional wall motion abnormalities noted. Ejection Fraction = 65-70%. The right ventricle is normal size. RV systolic function appears low normal. RV systolic TDI is 12 cm/s The left atrial size is normal. Right atrial size is normal. There is mild mitral regurgitation. There is mild to moderate tricuspid regurgitation. Pulmonary artery systolic pressure is normal with at least 23 mmHg if RA pressure is assumed 3 mmHg There is no pericardial effusion. Geronimo Trammell MD 10/21/2019 04:41 PM
[2019-10-21 18:55] VITALS: BP 110/62; PULSE 54
== END 2019-10-21 19:02 | disposition home or self-care (01) | DRG 134 ==
LOC: JER 04:37 → JERBED 13:34 → J8W 15:45
DX: I26.99 Other pulmonary embolism without acute cor pulmonale (principal); J98.11 Atelectasis; D72.829 Elevated white blood cell count, unspecified
CPT/HCPCS: 36415; 71046-TC-FY; 71275-TC; 74176-TC; 80048; 80053; 81003; 83735; 83880; 84484; 84703; 85025; 85027; 85379; 85610; 85730; 87086; 93005; 93010; 93306-TC; 93970-TC; 94010; 99285-25; J0131; J7030; Q9967